=== PATIENT | female | born 1980 | race Caucasian/White ===

== ENCOUNTER 2016-07-09 12:16 | Emergency (ER) | payer BC ==
[~2016-07-09] VITALS: Wt 55.2 kg
[~2016-07-09 12:16] MED LIST: BUSP10TA2 PO; HYDR-902 PO; LEVE-5 PO; PROM25TA14 PO; TOPI-44 PO; ZOLP5TAB PO
[2016-07-09] MEDS ORDERED: DIPHENHYDRAMINE 50 MG INJ IV STA (13:22)
[2016-07-09] MEDS ORDERED: SOD CHLORIDE 0.9% 1,000 ML IV STA (13:22)
[2016-07-09] MEDS ORDERED: METOCLOPRAMIDE 10 MG INJ IV STA (13:22)
[2016-07-09] MEDS ORDERED: KETOROLAC 30 MG INJ IV STA (13:22)
--- NOTE | 2016-07-09 13:31 | ERD ---
ER Documentation Chief Complaint Date/Time DATE: 07/09/16 TIME: 13:26 Chief Complaint HPI Patient is a 36-year-old female with past medical history of pineal gland cyst, chronic migraines who presents emergency department with migraine headache. Patient states that her headache started 2 days ago. Patient states her pain has been getting gradually worse. Patient denies sudden onset of her headache. Patient states she has been taking all her medication as prescribed by her neurologist for headaches however she has had no relief of her current symptoms. Patient states her current pain level is 10 out of 10. Patient reports nausea, vomiting, phonophobia, photophobia. Patient denies any loss of consciousness. Patient denies any fevers, chills, neck pain, back pain or neck stiffness. Patient states that this headache feels similar to her migraines in the past. Patient states that she was seen here in the emergency department of 2 -3 months ago, and at that time was given medication which did significantly alleviate her pain. Patient is requesting that she be given the same medication as her previous visit. Patient states that she last had a CT scan approximately 1 month ago with her neurologist. Patient states that currently there is no indication for removal of her pineal gland cyst. ROS All systems reviewed and are negative except as per history of present illness. Medications Home Meds Active Scripts Ondansetron (Ondansetron Odt) 4 Mg Tab.rapdis, 4 MG PO Q6H Y for NAUSEA AND/OR VOMITING, #10 TAB Prov:JOSE D CHISHOLM-C 07/09/16 Hydrocodone/Acetaminophen ([place] 5-325 Tablet) 1 Each Tablet, 1 TAB PO Q6H Y for PAIN, #7 TAB Prov:JOSE D CHISHOLM-C 07/09/16 Promethazine Hcl* (Phenergan*) 25 Mg Tablet, 25 MG PO Q6H Y for NAUSEA, #20 TAB Prov:LEKKOS,APOSTOLOS A. DO 11/28/15 Hydrocodone/Acetaminophen ([place] 10-325 Tablet) 1 Each Tablet, 1 EACH PO q 4-6 hours, #20 TAB Prov:LEKKOS,APOSTOLOS A. DO 11/28/15 Reported Medications Zolpidem Tartrate* (Ambien*) 5 Mg Tablet, 5 MG PO QHS Y for INSOMNIA, #30 TAB 11/28/15 Buspirone Hcl* (Buspirone Hcl*) 10 Mg Tab, 10 MG PO DAILY, TAB 11/28/15 Topiramate* (Topiramate*) 25 Mg Tablet, 75 MG PO QHS, TAB 11/28/15 Topiramate* (Topiramate*) 25 Mg Tablet, 25 MG PO QAM, TAB 11/28/15 Levetiracetam* (Keppra*) 500 Mg Tablet, 500 MG PO BID, TAB 11/28/15 Allergies Allergies: Coded Allergies: Iodine and Iodide Containing Produc (Verified Allergy, Mild, rash, 11/28/15 ) PMhx/Soc History of Surgery: No Anesthesia Reaction: No Hx Neurological Disorder: Yes (Seizures, migraine EMERSON.) Hx Respiratory Disorders: No Hx Cardiac Disorders: No Hx Psychiatric Problems: No 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 ) Hx Alcohol Use: No Hx Substance Use: No Hx Tobacco Use: No Physical Exam Vitals Vital Signs Date Time Temp Pulse Resp B/P Pulse Ox O2 Delivery O2 Flow Rate FiO2 07/09/16 18:02 97.8 60 16 105/66 100 07/09/16 15:31 55 14 99/56 100 07/09/16 13:26 97.8 68 20 114/56 99 Physical Exam GENERAL: Well-developed, well-nourished female. Appears in pain. Sitting in a dark room. HEAD: Normocephalic, atraumatic. No deformities or ecchymosis. EYE: Pupils equal, round, and reactive to light. EOMs intact. No conjunctival erythema. No eye discharge. ENT: External ear without any masses or tenderness. Auditory canals clear bilaterally. TM visualized bilaterally, non-erythematous, non-bulging. Nasal mucosa pink with no discharge. Oropharynx is pink without any tonsillar erythema or exudates. No uvula deviation. No kissing tonsils. NECK: Supple. No meningismus. Normal ROM of the neck. LUNG: Clear to auscultation bilaterally. No rhonchi, wheezing, rales or coarse breath sounds. HEART: Regular rate and rhythm. No murmurs, rubs or gallops. BACK: No midline tenderness. EXTREMITIES: Equal pulses bilaterally. No peripheral clubbing, cyanosis or edema. No unilateral leg swelling. NEUROLOGIC: Alert and oriented x3, cooperative. Mood and affect appropriate to situation. Cranial nerves II through XII are grossly intact. Normal speech. Motor exam: 5/5 strength in upper and lower extremities. Sensory exam: Sensation intact to light touch on all four extremities. Cerebellar function exam: No dysmetria on [id number] test. Steady gait. No pronator drift. SKIN: Normal color. Warm and dry. No rashes or lesions. Results 24 hrs Laboratory Tests Test 07/09/16 15:21 Bedside Urine pH (LAB) 7.0 Bedside Urine Protein (LAB) Negative Bedside Urine Glucose (UA) Negative Bedside Urine Ketones (LAB) Negative Bedside Urine Blood 2+ Bedside Urine Nitrite (LAB) Negative Bedside Urine Leukocyte Esterase (L Negative Current Medications Medications (Trade) Dose Ordered Sig/Sajan Route PRN Reason Start Time Stop Time Status Last Admin Dose Admin Sodium Chloride (NS) 1,000 ml @ 1,000 mls/hr Q1H STAT IV 07/09/16 13:22 07/09/16 14:21 DC 07/09/16 13:58 Metoclopramide HCl (Reglan) 10 mg ONCE STAT IV 07/09/16 13:22 07/09/16 14:32 DC 07/09/16 13:58 Ketorolac Tromethamine (Toradol) 30 mg ONCE STAT IV 07/09/16 13:22 07/09/16 13:24 DC 07/09/16 13:58 Diphenhydramine HCl (Benadryl) 25 mg ONCE STAT IV 07/09/16 13:22 07/09/16 13:24 DC 07/09/16 13:58 Promethazine HCl (Phenergan) 25 mg ONCE ONCE PO 07/09/16 14:30 07/09/16 14:32 DC 07/09/16 14:37 Hydromorphone HCl 0.5 mg 0.5 mg ONCE STAT IV 07/09/16 15:08 07/09/16 15:10 DC 07/09/16 15:28 Sodium Chloride (NS) 500 ml @ 500 mls/hr Q1H STAT IV 07/09/16 16:08 07/09/16 17:07 DC 07/09/16 16:11 Hydromorphone HCl (Dilaudid) 0.5 mg ONCE STAT IV 07/09/16 17:24 07/09/16 17:25 DC 07/09/16 17:32 Procedures/MDM ED COURSE: The patient was stable throughout ED course. I kept the patient and/or family informed of laboratory and diagnostic imaging results throughout the ED course. MEDICATIONS GIVEN: Patient was initially given IV fluids, Reglan, Benadryl, Toradol. Upon reexamination, patient continued to have moderate pain and stated that the " main ER DrEdin always gives me Dilaudid." Patient was given Dilaudid 0.5 mg. Patient was noted to be sleeping on numerous occasions. Prior to discharge, patient requesting an additional dose of Dilaudid as "typically 1mg is what works" for her and this is what the ED 1 doctor typically dose. Patient was upset to be placed in ED 2. Patient stated that her current pain was a 3/10 prior to discharge and wished for her pain to be alleviated lower prior to discharge, in fears of her headache "reoccurring stronger" and needing to come back to the ED. Patient was given an additional Dilaudid 0.5 mg. I have the patient I would not be able to give her an additional narcotics after this second dose. Patient understood. MEDICAL DECISION MAKING: This is a 36-year-old female with a history of pineal gland cyst and chronic migraines who presents emergency department with a headache 2 days. Patient states the pain is been getting gradually worse with no alleviation of pain with her home medications. Patient denied sudden onset. Patient reports phonophobia, photophobia, nausea, vomiting. Patient denies any loss of consciousness or blurry vision. Patient does report that her headache feels very similar to previous headaches which she has been treated for here in the emergency department. Vital signs were reviewed. Patient was afebrile. Patient is not hypoxic. Full neurological exam was normal. Given that patient stated that she recently had a CT scan completed, I did not feel it was necessary to repeat imaging studies at todays visit. Given these findings, the patient's presentation is most consistent with chronic migraines. I have a much lower clinical concern for intracranial hemorrhage, meningitis, encephalitis, CO poisoning, temporal arteritis, benign intracranial hypertension, glaucoma, sinusitis. Unable to rule mass effect or midline shift. PRESCRIPTIONS: [place] Zofran DISCHARGE: At this time, patient is stable for discharge and outpatient management. I have encouraged the patient to hydrate well. I have instructed the patient to follow- up with his/her primary care physician in 1-2 days. Patient advised to follow up with her neurologist. I have instructed the patient to promptly return to the ER at any time for any new or worsening symptoms including increased increased pain, fever, nausea, vomiting, numbness, neck stiffness, visual changes, weakness or LOC. The patient and/or family expressed understanding of and agreement with this plan. All questions were answered. Home care instructions were provided. Departure Diagnosis: Primary Impression: Headache Headache type: unspecified Headache chronicity pattern: unspecified pattern Intractability: not intractable Qualified Code: R51 - Nonintractable headache, unspecified chronicity pattern, unspecified headache type Condition: Stable Patient Instructions: Self-Care for Headaches Referrals: ALEK SLADE (PCP) Additional Instructions: Call your primary care doctor TOMORROW for an appointment during the next 1-2 days.See the doctor sooner or return here if your condition worsens before your appointment time. Follow up with your neurologist as scheduled. Continue take all medication as prescribed. JOSE D CHISHOLM PA-C Jul 09, 2016 13:31
[2016-07-09] MEDS ORDERED: PROMETHAZINE 25 MG TAB PO ONE (14:30)
[2016-07-09] MEDS ORDERED: HYDROmorphONE 1 MG/ML SYG IV STA ×2 (15:08→17:24)
[2016-07-09 15:21] LABS: URINE BLOOD (Dip) POC 2+ (NEGATIVE)
[2016-07-09] MEDS ORDERED: SOD CHLORIDE 0.9% 500 ML IV STA (16:08)
[2016-07-09] MEDS ORDERED: ONDA4TAB14 PO (16:51)
[2016-07-09] MEDS ORDERED: HYDR-906 PO (16:51)
[2016-07-09 18:02] VITALS: BP 105/66; PULSE 60; RESP 16; TEMP 97.8
== END 2016-07-09 18:04 | disposition home or self-care (01) ==
LOC: FTE 12:16
DX: R51 Headache (principal); R11.2 Nausea with vomiting, unspecified
CPT/HCPCS: 36415; 81003; 96374; 96375; 96376; 99284; J1170; J1200; J1885; J2765; J7030; J7040

== ENCOUNTER 2016-08-16 22:18 | Emergency (ER) | payer BC ==
[~2016-08-16] VITALS: Ht 162.6 cm; Wt 53.5 kg
[~2016-08-16 22:18] MED LIST changes: +HYDR-906 PO; +ONDA4TAB14 PO
[2016-08-16 22:22] VITALS: Ht 162.6 cm; Wt 53.5 kg
[2016-08-16] MEDS ORDERED: SOD CHLORIDE 0.9% 1,000 ML IV STA (22:45)
[2016-08-16] MEDS ORDERED: ONDANSETRON 4 MG INJ IV STA (22:45)
[2016-08-16] MEDS ORDERED: DIPHENHYDRAMINE 50 MG INJ IV STA (22:45)
[2016-08-16] MEDS ORDERED: HYDROmorphONE 1 MG/ML SYG IV STA (22:45)
[2016-08-16] MEDS ORDERED: KETOROLAC 30 MG INJ IV STA (22:45)
[2016-08-16] MEDS ORDERED: HYDR-902 PO (23:16)
[2016-08-16] MEDS ORDERED: ONDA4TAB14 PO (23:16)
--- NOTE | 2016-08-16 23:34 | ERD ---
ER Documentation Chief Complaint Date/Time DATE: 08/16/16 TIME: 23:32 Chief Complaint headache states" i have tumor in my brain" HPI Patient is a 36-year-old female with a history of a pineal cystic tumor who presents with headache. She has a history of headaches. She usually needs fluids and Dilaudid. She has vomiting. She has no fevers. She has had pain for the past 2 days. She tried her Relpax but was still having pain. She usually gets CT scans every 6 months. She does have a primary doctor and a neurologist to follow her. ROS All systems reviewed and are negative except as per history of present illness. Medications Home Meds Active Scripts Hydrocodone/Acetaminophen ([place] 10-325 Tablet) 1 Each Tablet, 1 TAB PO Q6H Y for PAIN, #7 TAB Prov:LIANNA MCGOWAN MD 08/16/16 Ondansetron (Ondansetron Odt) 4 Mg Tab.rapdis, 4 MG PO Q6H Y for NAUSEA AND/OR VOMITING, #10 TAB Prov:LIANNA MCGOWAN MD 08/16/16 Ondansetron (Ondansetron Odt) 4 Mg Tab.rapdis, 4 MG PO Q6H Y for NAUSEA AND/OR VOMITING, #10 TAB Prov:JOSE D CHISHOLM PA-C 07/09/16 Hydrocodone/Acetaminophen ([place] 5-325 Tablet) 1 Each Tablet, 1 TAB PO Q6H Y for PAIN, #7 TAB Prov:JOSE D CHISHOLM PA-C 07/09/16 Promethazine Hcl* (Phenergan*) 25 Mg Tablet, 25 MG PO Q6H Y for NAUSEA, #20 TAB Prov:BARAK CORTEZ DO 11/28/15 Hydrocodone/Acetaminophen ([place] 10-325 Tablet) 1 Each Tablet, 1 EACH PO q 4-6 hours, #20 TAB Prov:BARAK CORTEZ DO 11/28/15 Reported Medications Zolpidem Tartrate* (Ambien*) 5 Mg Tablet, 5 MG PO QHS Y for INSOMNIA, #30 TAB 11/28/15 Buspirone Hcl* (Buspirone Hcl*) 10 Mg Tab, 10 MG PO DAILY, TAB 11/28/15 Topiramate* (Topiramate*) 25 Mg Tablet, 75 MG PO QHS, TAB 11/28/15 Topiramate* (Topiramate*) 25 Mg Tablet, 25 MG PO QAM, TAB 11/28/15 Levetiracetam* (Keppra*) 500 Mg Tablet, 500 MG PO BID, TAB 11/28/15 Allergies Allergies: Coded Allergies: Iodine and Iodide Containing Produc (Verified Allergy, Mild, rash, 11/28/15 ) PMhx/Soc Medical and Surgical Hx: pt denies Surgical Hx History of Surgery: No Anesthesia Reaction: No Hx Neurological Disorder: Yes (Seizures, migraine EMERSON.) Hx Respiratory Disorders: No Hx Cardiac Disorders: No Hx Psychiatric Problems: No 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 ) Hx Alcohol Use: No Hx Substance Use: No Hx Tobacco Use: No Smoking Status: Never smoker FmHx Family History: diabetes Physical Exam Vitals Vital Signs Date Time Temp Pulse Resp B/P Pulse Ox O2 Delivery O2 Flow Rate FiO2 08/16/16 22:22 98.3 76 20 111/74 99 Physical Exam Const: Moderate distress secondary to pain Head: Atraumatic Eyes: Normal Conjunctiva ENT: Normal External Ears, Nose and Mouth. Neck: Full range of motion..~ No meningismus. Resp: Clear to auscultation bilaterally Cardio: Regular rate and rhythm, no murmurs Abd: Soft, non tender, non distended. Normal bowel sounds Skin: No petechiae or rashes Back: No midline or flank tenderness Ext: No cyanosis, or edema Neur: Awake and alert, no slurred speech, no weakness of the upper or lower extremities, pupils are equal and reactive Psych: Normal Mood and Affect Results 24 hrs Current Medications Medications (Trade) Dose Ordered Sig/Sajan Route PRN Reason Start Time Stop Time Status Last Admin Dose Admin Sodium Chloride (NS) 1,000 ml @ 1,000 mls/hr Q1H STAT IV 08/16/16 22:45 08/16/16 23:44 08/16/16 23:13 Ondansetron HCl (Zofran Inj) 4 mg ONCE STAT IV 08/16/16 22:45 08/16/16 22:46 DC 08/16/16 23:13 Hydromorphone HCl (Dilaudid) 1 mg ONCE STAT IV 08/16/16 22:45 5/12/17 22:46 DC 08/16/16 23:14 Ketorolac Tromethamine (Toradol) 30 mg ONCE STAT IV 08/16/16 22:45 08/16/16 22:46 DC 08/16/16 23:14 Diphenhydramine HCl (Benadryl) 25 mg ONCE STAT IV 08/16/16 22:45 08/16/16 22:46 DC 08/16/16 23:13 Procedures/[facility] Patient is a 36-year-old female presents with acute on chronic headaches. The patient was given 1 L of normal saline, Toradol, Dilaudid, Zofran, and Benadryl. At this point I believe outpatient management is appropriate. I doubt intracranial hemorrhage or meningitis. I believe the patient can follow- up with her primary doctor and neurologist within 24-48 hours. She can return sooner for any worsening symptoms. I think the risks of doing another CT scan today outweigh the benefits she gets multiple CT scans. Departure Diagnosis: Primary Impression: Headache Headache type: unspecified Headache chronicity pattern: acute headache Intractability: not intractable Qualified Code: R51 - Acute nonintractable headache, unspecified headache type Condition: Fair Patient Instructions: Self-Care for Headaches Referrals: ALEK SLADE (PCP) Additional Instructions: Call your primary care doctor TOMORROW for an appointment during the next 1-2 days.See the doctor sooner or return here if your condition worsens before your appointment time. LIANNA MCGOWAN MD August 16, 2016 23:34
[2016-08-17 01:01] VITALS: BP 109/62; PULSE 68; RESP 20; TEMP 98.6
== END 2016-08-17 01:00 | disposition home or self-care (01) ==
LOC: FTE 22:18
DX: R51 Headache (principal)
CPT/HCPCS: 96374; 96375; 99284; J1170; J1200; J1885; J2405; J7030

== ENCOUNTER 2016-08-31 11:00 | Emergency (ER) | payer BC ==
[~2016-08-31] VITALS: Wt 53.1 kg
[2016-08-31] MEDS ORDERED: HYDROmorphONE 1 MG/ML SYG IV STA (11:29)
[2016-08-31] MEDS ORDERED: ONDANSETRON 4 MG INJ IV STA (11:29)
[2016-08-31] MEDS ORDERED: SOD CHLORIDE 0.9% 2,000 ML IV STA (11:29)
[2016-08-31] MEDS ORDERED: KETOROLAC 30 MG INJ IV STA (11:29)
[2016-08-31] MEDS ORDERED: DIPHENHYDRAMINE 50 MG INJ IV ONE (11:30)
[2016-08-31 12:51] LABS: URINE BLOOD (Dip) POC Negative (NEGATIVE)
--- NOTE | 2016-08-31 13:29 | ERD ---
ER Documentation Chief Complaint Date/Time DATE: 08/31/16 TIME: 13:26 Chief Complaint HEADACHE FOR 2 DAYS WITH NAUSEA AND VOMITING. NO NEURO DEFICIT HPI This 36-year-old female presents with history of recurrent headaches and acute headache for last 2 days not relieved by her Relpax at home. Patient gives a history of migraines as well as review of the record of a pineal gland cyst. She is in the care of neurologist. She has a history of ER visits for these and breakthrough headaches since that she is near improved with previous medication regimen from her last visit but usually gets 2 L IV normal saline. Patient denies any fevers or recent illnesses, weakness, visual changes feels like her headache is similar to previous. Denies any bowel or bladder incontinence. ROS All systems reviewed and are negative except as per history of present illness. Medications Home Meds Active Scripts Hydrocodone/Acetaminophen ([place] 10-325 Tablet) 1 Each Tablet, 1 TAB PO Q6H Y for PAIN, #7 TAB Prov:LIANNA MCGOWAN MD 08/16/16 Ondansetron (Ondansetron Odt) 4 Mg Tab.rapdis, 4 MG PO Q6H Y for NAUSEA AND/OR VOMITING, #10 TAB Prov:LIANNA MCGOWAN MD 08/16/16 Ondansetron (Ondansetron Odt) 4 Mg Tab.rapdis, 4 MG PO Q6H Y for NAUSEA AND/OR VOMITING, #10 TAB Prov:JOSE D CHISHOLM PA-C 07/09/16 Hydrocodone/Acetaminophen ([place] 5-325 Tablet) 1 Each Tablet, 1 TAB PO Q6H Y for PAIN, #7 TAB Prov:JOSE D CHISHOLM PA-C 07/09/16 Promethazine Hcl* (Phenergan*) 25 Mg Tablet, 25 MG PO Q6H Y for NAUSEA, #20 TAB Prov:BARAK CORTEZ DO 11/28/15 Hydrocodone/Acetaminophen ([place] 10-325 Tablet) 1 Each Tablet, 1 EACH PO q 4-6 hours, #20 TAB Prov:LEFELI VALLEJOSTOLOS A. DO 11/28/15 Reported Medications Zolpidem Tartrate* (Ambien*) 5 Mg Tablet, 5 MG PO QHS Y for INSOMNIA, #30 TAB 11/28/15 Buspirone Hcl* (Buspirone Hcl*) 10 Mg Tab, 10 MG PO DAILY, TAB 11/28/15 Topiramate* (Topiramate*) 25 Mg Tablet, 75 MG PO QHS, TAB 11/28/15 Topiramate* (Topiramate*) 25 Mg Tablet, 25 MG PO QAM, TAB 11/28/15 Levetiracetam* (Keppra*) 500 Mg Tablet, 500 MG PO BID, TAB 11/28/15 Allergies Allergies: Coded Allergies: Iodine and Iodide Containing Produc (Verified Allergy, Mild, rash, 11/28/15 ) PMhx/Soc History of Surgery: Yes (Sinus surgery) Anesthesia Reaction: No Hx Neurological Disorder: Yes (Seizures, migraine EMERSON.) Hx Respiratory Disorders: No Hx Cardiac Disorders: No Hx Psychiatric Problems: No 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 ) Hx Alcohol Use: No Hx Substance Use: No Hx Tobacco Use: No Smoking Status: Never smoker Physical Exam Vitals Vital Signs Date Time Temp Pulse Resp B/P Pulse Ox O2 Delivery O2 Flow Rate FiO2 08/31/16 11:05 98.8 84 20 103/59 99 Physical Exam Const: [] Alert, uncomfortable but [id number] in no apparent distress. Head: Atraumatic Eyes: Normal Conjunctiva ENT: Normal External Ears, Nose and Mouth. Neck: Full range of motion..~ No meningismus. Resp: Clear to auscultation bilaterally Cardio: Regular rate and rhythm, no murmurs Abd: Soft, non tender, non distended. Normal bowel sounds Skin: No petechiae or rashes Back: No midline or flank tenderness Ext: No cyanosis, or edema Neur: Awake and alert. Normal gait with no appreciable focal neurologic deficits. Psych: Normal Mood and Affect Results 24 hrs Laboratory Tests Test 08/31/16 12:53 Bedside Urine pH (LAB) 5.5 Bedside Urine Protein (LAB) Negative Bedside Urine Glucose (UA) Negative Bedside Urine Ketones (LAB) Negative Bedside Urine Blood Negative Bedside Urine Nitrite (LAB) Negative Bedside Urine Leukocyte Esterase (L Negative Current Medications Medications (Trade) Dose Ordered Sig/Sajan Route PRN Reason Start Time Stop Time Status Last Admin Dose Admin Sodium Chloride (NS) 2,000 ml @ 1,000 mls/hr Q2H STAT IV 08/31/16 11:29 08/31/16 13:28 08/31/16 12:26 Hydromorphone HCl (Dilaudid) 1 mg ONCE STAT IV 08/31/16 11:29 08/31/16 11:31 DC 08/31/16 12:21 Ondansetron HCl (Zofran Inj) 4 mg ONCE STAT IV 08/31/16 11:29 08/31/16 11:31 DC 08/31/16 12:21 Ketorolac Tromethamine (Toradol) 30 mg ONCE STAT IV 08/31/16 11:29 08/31/16 11:31 DC 08/31/16 12:21 Diphenhydramine HCl (Benadryl) 25 mg ONCE ONCE IV 08/31/16 11:30 08/31/16 11:31 DC 08/31/16 12:21 Procedures/MDM Patient presents with recurrent headache despite home treatment with Relpax. Patient has a history of improving with 2 L normal saline IV, Toradol 30 mg IV, Zofran form of grams IV, Benadryl 25 g IV and Dilaudid 1 mg IV. Patient felt better after observation treatment. Patient presents with recurrent headache without signs or symptoms to suggest intracranial bleeding, mass-effect, meningitis, additional emergent cause of headache. Review of cures shows the patient has not received any narcotics for last 6 months as an outpatient is not requesting any home narcotics. Patient appears amenable to continued outpatient treatment with her PCP and specialist. Patient will be discharged home instructions to continue Relpax as needed, follow-up with neurology and primary care doctor. The patient was stable with no new complaints during the ER course. Clinically, there is no current evidence to suggest meningitis, sepsis, acute abdomen, pneumonia, acute coronary syndrome, pulmonary embolism, or any other emergent condition appearing to require further evaluation or hospitalization. The patient should certainly return for any new or worsening symptoms per the aftercare instructions. They should otherwise follow-up with her primary care doctor for reevaluation this week. Departure Diagnosis: Primary Impression: Headache Headache type: unspecified Headache chronicity pattern: acute headache Intractability: not intractable Qualified Code: R51 - Acute nonintractable headache, unspecified headache type Additional Impression: Nausea and vomiting Vomiting type: unspecified Vomiting Intractability: unspecified Qualified Code: R11.2 - Nausea and vomiting, intractability of vomiting not specified, unspecified vomiting type Condition: Stable Patient Instructions: Self-Care for Headaches, Nausea and Vomiting-Adult Additional Instructions: Recheck with neurology and primary care or for new or worsening symptoms. AMMY DOMINGUEZ MD August 31, 2016 13:29
[2016-08-31 13:37] VITALS: BP 107/55; PULSE 84; RESP 16
== END 2016-08-31 13:38 | disposition home or self-care (01) ==
LOC: FTE 11:00
DX: R51 Headache (principal); R11.2 Nausea with vomiting, unspecified
CPT/HCPCS: 81003; J1170; J1200; J1885; J2405; J7030; 96374; 96375

== ENCOUNTER 2016-10-28 19:47 | Emergency (ER) | payer BC ==
[~2016-10-28] VITALS: Ht 157.5 cm; Wt 54.5 kg
[2016-10-28 19:48] VITALS: Ht 157.5 cm; Wt 54.5 kg
[2016-10-29] MEDS ORDERED: HYDROmorphONE 1 MG/ML SYG IV SCH (01:00)
[2016-10-29] MEDS ORDERED: DIPHENHYDRAMINE 50 MG INJ IV SCH (01:00)
[2016-10-29] MEDS ORDERED: KETOROLAC 30 MG INJ IV SCH (01:00)
[2016-10-29] MEDS ORDERED: SOD CHLORIDE 0.9% 1,000 ML IV SCH (01:00)
[2016-10-29] MEDS ORDERED: ONDANSETRON 4 MG INJ IV SCH (01:00)
[2016-10-30] MEDS ORDERED: HYDROmorphONE 1 MG/ML SYG ONE (18:01)
[2016-10-30] MEDS ORDERED: DIPHENHYDRAMINE 50 MG INJ ONE (18:01)
[2016-10-30] MEDS ORDERED: KETOROLAC 30 MG INJ ONE (18:01)
[2016-10-30] MEDS ORDERED: ONDANSETRON 4 MG INJ ONE (18:01)
--- NOTE | 2016-11-15 18:16 | ERA ---
ER Documentation Chief Complaint Date/Time DATE: 11/15/16 TIME: 18:09 Chief Complaint headache since yesterday HPI 36-year-old female with a chief complaint of headache. History of scoliosis. Has requested to be under the care of Dr. Cortez. Brief physical examination was obtained. No significant red flags other than chronic history of pilonidal cyst that is being monitored by a neurologist. Scheduled for surgery November 25 per patient. Patient case will be handed over to Dr. Cortez. ROS All systems reviewed and are negative except as per history of present illness. Medications Home Meds Active Scripts Hydrocodone/Acetaminophen ([place] 10-325 Tablet) 1 Each Tablet, 1 TAB PO Q6H Y for PAIN, #7 TAB Prov:LIANNA MCGOWAN MD 08/16/16 Ondansetron (Ondansetron Odt) 4 Mg Tab.rapdis, 4 MG PO Q6H Y for NAUSEA AND/OR VOMITING, #10 TAB Prov:LIANNA MCGOWAN MD 08/16/16 Ondansetron (Ondansetron Odt) 4 Mg Tab.rapdis, 4 MG PO Q6H Y for NAUSEA AND/OR VOMITING, #10 TAB Prov:JOSE D CHISHOLM PA-C 07/09/16 Hydrocodone/Acetaminophen ([place] 5-325 Tablet) 1 Each Tablet, 1 TAB PO Q6H Y for PAIN, #7 TAB Prov:JOSE D CHISHOLM PA-C 07/09/16 Promethazine Hcl* (Phenergan*) 25 Mg Tablet, 25 MG PO Q6H Y for NAUSEA, #20 TAB Prov:BARAK CORTEZ DO 11/28/15 Hydrocodone/Acetaminophen ([place] 10-325 Tablet) 1 Each Tablet, 1 EACH PO q 4-6 hours, #20 TAB Prov:BARAK CORTEZ DO 11/28/15 Reported Medications Zolpidem Tartrate* (Ambien*) 5 Mg Tablet, 5 MG PO QHS Y for INSOMNIA, #30 TAB 11/28/15 Buspirone Hcl* (Buspirone Hcl*) 10 Mg Tab, 10 MG PO DAILY, TAB 11/28/15 Topiramate* (Topiramate*) 25 Mg Tablet, 75 MG PO QHS, TAB 11/28/15 Topiramate* (Topiramate*) 25 Mg Tablet, 25 MG PO QAM, TAB 11/28/15 Levetiracetam* (Keppra*) 500 Mg Tablet, 500 MG PO BID, TAB 11/28/15 Allergies Allergies: Coded Allergies: Iodine and Iodide Containing Produc (Verified Allergy, Mild, rash, 11/28/15 ) PMhx/Soc History of Surgery: Yes (Sinus surgery) Anesthesia Reaction: No Hx Neurological Disorder: Yes (Seizures, migraine EMERSON.) Hx Respiratory Disorders: No Hx Cardiac Disorders: No Hx Psychiatric Problems: No 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 ) Hx Alcohol Use: No Hx Substance Use: No Hx Tobacco Use: No Smoking Status: Never smoker Physical Exam Physical Exam Const: Agitated upset patient. Head: Atraumatic Eyes: Normal Conjunctiva ENT: Normal External Ears, Nose and Mouth. Neck: Full range of motion..~ No meningismus. Resp: Clear to auscultation bilaterally Cardio: Regular rate and rhythm, no murmurs Abd: Soft, non tender, non distended. Normal bowel sounds Skin: No petechiae or rashes Back: No midline or flank tenderness Ext: No cyanosis, or edema Neur: Awake and alert Psych: Normal Mood and Affect Results 24 hrs Current Medications Medications (Trade) Dose Ordered Sig/Sajan Route PRN Reason Start Time Stop Time Status Last Admin Dose Admin Hydromorphone HCl 1 mg 1 mg ONCE IV 10/29/16 01:00 10/29/16 01:02 DC 10/29/16 01:44 Sodium Chloride (NS) 1,000 ml @ 1,000 mls/hr Q1H IV 10/29/16 01:00 10/29/16 01:59 DC 10/29/16 01:44 Diphenhydramine HCl (Benadryl) 25 mg ONCE IV 10/29/16 01:00 10/29/16 01:02 DC 10/29/16 01:43 Ondansetron HCl (Zofran Inj) 4 mg ONCE IV 10/29/16 01:00 10/29/16 01:02 DC 10/29/16 01:44 Ketorolac Tromethamine (Toradol) 30 mg ONCE IV 10/29/16 01:00 10/29/16 01:02 DC 10/29/16 01:44 Ondansetron HCl (Zofran Inj) 4 mg STK-MED ONCE .ROUTE 10/30/16 18:01 10/30/16 18:06 DC Ketorolac Tromethamine (Toradol) 30 mg STK-MED ONCE .ROUTE 10/30/16 18:01 10/30/16 18:06 DC Hydromorphone HCl (Dilaudid) 1 mg STK-MED ONCE .ROUTE 10/30/16 18:01 10/30/16 18:06 DC Diphenhydramine HCl (Benadryl) 50 mg STK-MED ONCE .ROUTE 10/30/16 18:01 10/30/16 18:06 DC Procedures/MDM 36-year-old female presenting with a headache 1 day. Patient is displaying drug-seeking behaviors. Pre-physical examination was done. No significant findings. No significant red flags in history. Dr. Floyd evaluated patient alongside with me. Patient case was handed over to Dr. Cortez. Departure Diagnosis: Primary Impression: EMERSON (headache) Qualified Code: R51 - Nonintractable headache, unspecified chronicity pattern , unspecified headache type Condition: Stable Comments Patient case was handed to Dr. Cortez. Prescription that I wrote -[place] 5/325 mg p.o. every 6 hours was never given to the patient as she refused. ILIR DONATO PA-C Nov 15, 2016 18:15
== END 2016-10-29 01:38 | disposition home or self-care (01) ==
LOC: FTE 19:47
DX: R51 Headache (principal)
CPT/HCPCS: 96374; 96375; 99284; J7030; J1170; J1200; J1885; J2405